=== PATIENT | male | born 1970 | race Caucasian/White ===

== ENCOUNTER 2017-03-28 09:28 | Emergency (ER) | payer SELFPAY ==
[~2017-03-28] VITALS: Ht 177.8 cm; Wt 89.4 kg
[2017-03-28 10:43] LABS: HEMATOCRIT 44.3 % (38.0-50.0); MCH 30.7 PG (29.0-34.0); MCHC 34.3 G/DL (30.0-36.0); MCV 89.5 FL (86-99); MEAN PLAT.VOLUME 11.1 uM^3 (9.0-12.4); PLATELET COUNT 121 K/uL (156-360); RBC DIS.WIDTH-CV 12.1 % (11.8-14.6); RBC DIS.WIDTH-SD 39.7 % (39-53); RED BLOOD COUNT 4.95 M/uL (4.00-5.50); WHITE BLOOD COUNT 7.8 K/uL (4.1-10.2)
[2017-03-28 10:57] LABS: CHLORIDE 104 mEq/L (99-109); POTASSIUM 4.3 mEq/L (3.7-5.4); SODIUM 139 mEq/L (136-147)
[2017-03-28 10:58] LABS: GLUCOSE 126 mg/dL (70-99)
[2017-03-28 11:00] LABS: ANION GAP 11 MEQ/L (2-14)
[2017-03-28 11:02] LABS: GFR ESTIMATE (CALCULATED) > 59 mL/min/
[2017-03-28 11:03] LABS: UREA NITROGEN (BUN) 14 mg/dL (9-23)
[2017-03-28 12:13] LABS: ADD MIUA? NO; BILIRUBIN NEGATIVE; BLOOD NEGATIVE; COLOR YELLOW ((YELLOW)); GLUCOSE (STRIP) NEGATIVE; KETONES 20; LEUKOCYTES NEGATIVE; NITRITE NEGATIVE; PROTEIN (STRIP) NEGATIVE; UCUL ADDED? NO; UROBILINOGEN 0.2 MG/DL (0.2-1.0)
[2017-03-28 12:35] LABS: SPECIFIC GRAVITY 1.082 (1.000-1.030)
[2017-03-28] MEDS ORDERED: PERCOCET 5/31 TABLET PO (13:51)
[2017-03-28 14:09] VITALS: BP 151/81
== END 2017-03-28 14:10 | disposition home or self-care (01) ==
LOC: EME 09:28
PROVIDERS: Emergency Medicine
DX: H60.92 Unspecified otitis externa, left ear (principal); R50.9 Fever, unspecified
CPT/HCPCS: 70487; 80048; 81003; 85027; 99281; 99283; J2270; J2405; J7040